=== PATIENT | female | born 1995 | race Two or more races ===

== ENCOUNTER 2024-09-11 08:50 | Inpatient (IN) | payer OTHER ==
[~2024-09-11] VITALS: Ht 154.9 cm; Wt 139.7 kg
--- NOTE | 2024-09-11 08:57 | NUR ---
PTE ALERTA Y ORIENTADA X3 REFIERE VARIOS EPIDODIOS DE VOMITOS Y MOLESTIA ESTOMACAL. SE MIDEN S/V Y SE UBICA.
[2024-09-11] MEDS ORDERED: HYOSCYAMINE SULFATE 0.125 MG TAB.SUBL SL ONE (09:45)
[2024-09-11] MEDS ORDERED: 0.9 % SODIUM CHLORIDE 1,000 ML IV ONE (09:45)
[2024-09-11] MEDS ORDERED: PROMETHAZINE HCL 50 MG/ML AMPUL IM ONE ×2 (09:45→09:52)
[2024-09-11] MEDS ORDERED: FAMOtidine 10 MG/ML (4ML VIAL) IV PUSH ONE (09:45)
[2024-09-11] MEDS ORDERED: ONDANSETRON HCL 2 MG/ML VIAL IV ONE (09:45)
[2024-09-11] MEDS ORDERED: HYOSCYAMINE SULFATE 0.125 MG TAB.SUBL ONE (09:52)
[2024-09-11] MEDS ORDERED: ONDANSETRON HCL 2 MG/ML VIAL ONE (09:52)
[2024-09-11] MEDS ORDERED: FAMOTIDINE/PF 20 MG/2 ML VIAL ONE (09:52)
--- NOTE | 2024-09-11 10:12 | NUR ---
PTE ALERTA Y ORIENTADA X3, RN CANCEL ORIENTA SOBRE TX MEDICO Y REIFERE ACEPTAR. CANALIZA Y COLECTA MUESTRAS DE LAB BAJO MEDIDAS ASEPTICAS. ADMINISTRA MED EVANGELISTA ORDEN MEDICA
[2024-09-11 11:44] LABS: HEMATOCRIT 40.8 % (36.0-45.00); HEMOGLOBIN 13.7 g/dL (12.0-15.00); MEAN CELL VOLUME 92.4 fL (80.00-100.00); MEAN CORPUSCULAR HEMOGLOBIN 31.1 pg (27.00-32.0); MEAN CORPUSCULAR HGB CONC 33.6 g/dl (32.0-36.0); PLATELET COUNT 308 K/uL (150-450); RED BLOOD COUNT 4.41 M/uL (4.00-6.00); RED CELL DISTRIBUTION WIDTH 14.1 % (11.5-14.5)
[2024-09-11 12:13] LABS: ALBUMIN 4.4 gm/dL (3.4-5.0); ALKALINE PHOSPHATASE 78 U/L (50-136); ALT/SGPT 25 U/L (12-78); AMYLASE 122 U/L (25-115); ANION GAP 11 (10.0-20.0); AST/SGOT 23 U/L (15-37); BILIRUBIN TOTAL 0.36 mg/dL (0.3-1.2); BLOOD UREA NITROGEN 19 mg/dL (7-18); BUN CREA RATIO 22 (7.0-25.0); CALCIUM 9.6 mg/dL (8.5-10.1); CARBON DIOXIDE 27 mEq/L (21-32); CHLORIDE 107 mmol/L (98-107); CREATININE SERUM 0.88 mg/dL (0.55-1.02); GFR 76.51; GLOBULINA 3.6 G/DL (2.4-3.5); GLUCOSE FASTING 133 mg/dL (65-100); LIPASE 44 U/L (13-75); OSMOLALITY SERUM 285 MOSM/KG (275-295); POTASSIUM 4.13 mEq/L (3.5-5.1); SODIUM 141 mmol/L (136-145)
[2024-09-11 12:15] LABS: HCG QUANTITATIVE < 1 mUI/mL (1-3)
[2024-09-11] MEDS ORDERED: METOCLOPRAMIDE HCL 5 MG/ML VIAL IM ONE (13:00)
[2024-09-11] MEDS ORDERED: METOCLOPRAMIDE HCL 5 MG/ML VIAL ONE (13:01)
[2024-09-11] MEDS ORDERED: DIPHENHYDRAMINE HCL 50 MG/ML VIAL 1ML IV ONE (14:15)
[2024-09-11] MEDS ORDERED: DIPHENHYDRAMINE HCL 50 MG/ML VIAL 1ML ONE (14:39)
--- NOTE | 2024-09-11 15:57 | NUR ---
SE NOTIFICA CT PENDINTE.
[2024-09-11 18:24] LABS: PH,URINE 5.5 (5.0-8.0); URINE APPEARANCE Clear; URINE BACTERIA 1072.1 uL (0.0-1933); URINE BILIRRUBIN Negative (NEGATIVE); URINE BLOOD Moderate; URINE COLOR Yellow; URINE EPITHELIAL CELLS 21.9 uL (0.0-38.8); URINE GLUCOSE Negative (NEGATIVE); URINE KETONE 15 (NEGATIVE); URINE LEUKOCYTE Negative; URINE NITRATE Negative; URINE PROTEIN Trace (NEGATIVE); URINE RBC 65.6 uL (0.0-20.8); URINE UROBILINOGEN 0.2 E.U./dl; URINE WBC 8.6 uL (0.0-23.2)
[2024-09-11 18:29] LABS: URINE CAST 0.29 uL (0.0-1.40)
[2024-09-11] MEDS ORDERED: MECLIZINE HCL 25 MG TABLET PO ONE ×2 (19:00→19:26)
[2024-09-11] MEDS ORDERED: LORazepam 2 MG/ML VIAL IM ONE (21:15)
[2024-09-11] MEDS ORDERED: PANTOPRAZOLE SODIUM 40 MG/VIAL VIAL IV ONE (21:15)
[2024-09-11] MEDS ORDERED: PROCHLORPERAZINE EDISYLATE 5 MG/ML AMPUL IM ONE (21:15)
[2024-09-11] MEDS ORDERED: LORazepam 2 MG/ML DISP.SYRIN ONE (22:03)
[2024-09-11] MEDS ORDERED: FAMOTIDINE/PF 20 MG in 0.9 % SODIUM CHLORIDE 8 ML IV PUSH SCH (22:25)
[2024-09-11] MEDS ORDERED: METRONIDAZOLE/SODIUM CHLORIDE 100 ML IV SCH (22:26)
[2024-09-11] MEDS ORDERED: CIPROFLOXACIN IN 5 % DEXTROSE 200 ML IV SCH (22:26)
[2024-09-11] MEDS ORDERED: METOCLOPRAMIDE HCL 5 MG/ML VIAL IV ONE (22:30)
[2024-09-11] MEDS ORDERED: DEXTROSE 5 %-0.45 % SOD CHLORD 1,000 ML IV SCH (22:30)
[2024-09-11] MEDS ORDERED: ONDANSETRON HCL 4 MG in 0.9 % SODIUM CHLORIDE 50 ML IV PRN (22:30)
[2024-09-11] MEDS ORDERED: KETOROLAC TROMETHAMINE 30 MG VIAL IM PRN (23:15)
[2024-09-12 02:33] VITALS: BP 128/81; O2SAT 100
[2024-09-12 03:20] LABS: ALBUMIN 3.8 gm/dL (3.4-5.0); ALKALINE PHOSPHATASE 62 U/L (50-136); ALT/SGPT 21 U/L (12-78); AMYLASE 117 U/L (25-115); AST/SGOT 18 U/L (15-37); BILIRUBIN TOTAL 0.34 mg/dL (0.3-1.2); BILIRUBIN,CONJUGATED < 0.10 mg/dL (0.0-0.2); BILIRUBIN,UNCONJUGATED 0.24 mg/dL (0.0-0.6); LIPASE 53 U/L (13-75); TOTAL PROTEIN 7.1 gm/dL (6.4-8.2)
[2024-09-12 04:46] VITALS: BP 112/57; O2SAT 100
[2024-09-12 07:20] VITALS: BP 102/56; O2SAT 100
[2024-09-12 07:50] LABS: CREATININE SERUM 0.86 mg/dL (0.55-1.02); GFR 78.57; POTASSIUM 4.21 mEq/L (3.5-5.1)
[2024-09-12 16:00] VITALS: BP 111/73; O2SAT 98
[2024-09-13] VITALS: BP 117/56; O2SAT 99
[2024-09-13 08:00] VITALS: BP 145/67; O2SAT 100
[2024-09-13] MEDS ORDERED: METOCLOPRAMIDE HCL 5 MG/ML VIAL IV SCH (13:00)
[2024-09-13 19:35] VITALS: BP 143/73; O2SAT 98
[2024-09-14 00:30] VITALS: BP 131/57; O2SAT 100
[2024-09-14 07:44] LABS: HEMATOCRIT 35.8 % (36.0-45.00); HEMOGLOBIN 12.4 g/dL (12.0-15.00); MEAN CELL VOLUME 90.4 fL (80.00-100.00); MEAN CORPUSCULAR HEMOGLOBIN 31.4 pg (27.00-32.0); MEAN CORPUSCULAR HGB CONC 34.8 g/dl (32.0-36.0); PLATELET COUNT 222 K/uL (150-450); RED BLOOD COUNT 3.96 M/uL (4.00-6.00); RED CELL DISTRIBUTION WIDTH 14.1 % (11.5-14.5)
[2024-09-14 08:20] VITALS: BP 107/54; O2SAT 100
[2024-09-14 08:58] LABS: ALBUMIN 3.3 gm/dL (3.4-5.0); BILIRUBIN TOTAL 0.72 mg/dL (0.3-1.2); CALCIUM 8.7 mg/dL (8.5-10.1); GFR 66.02; GLOBULINA 2.8 G/DL (2.4-3.5); POTASSIUM 3.79 mEq/L (3.5-5.1); TOTAL PROTEIN 6.1 gm/dL (6.4-8.2)
[2024-09-14 16:00] VITALS: BP 130/63; O2SAT 100
== END 2024-09-14 21:32 | disposition home or self-care (01) | DRG 392 ==
LOC: ER 08:52 → SURH 22:23
PROVIDERS: General Practice; ADMIT Internal Medicine; ATTEND Internal Medicine
PROC: BW21YZZ Computerized Tomography (CT Scan) of Abdomen and Pelvis using Other Contrast (ICD-10-PCS; principal; 2024-09-11)
PROC: BW28ZZZ Computerized Tomography (CT Scan) of Head (ICD-10-PCS; 2024-09-11)
PROC: BU4CZZZ Ultrasonography of Uterus and Ovaries (ICD-10-PCS; 2024-09-11)
DX: K90.49 Malabsorption due to intolerance, not elsewhere classified (principal); K52.9 Noninfective gastroenteritis and colitis, unspecified; E86.0 Dehydration; D25.9 Leiomyoma of uterus, unspecified